=== PATIENT | female | born 1975 ===

== ENCOUNTER 2023-04-09 22:45 | Emergency (ER) | payer SELFPAY ==
[2023-04-10] MEDS ORDERED: ONDANSETRON 4 MG/2 ML VIAL ONE (00:48)
[2023-04-10] MEDS ORDERED: MORPHINE 4 MG/ML SYR ONE (00:48)
[2023-04-10] MEDS ORDERED: NA CHLORIDE 0.9% 500 ML ONE (00:48)
[2023-04-10 01:02] LABS: Specific Gravity 1.023 (1.005-1.030); Urine Bilirubin NEGATIVE (Negative); Urine Blood Negative (Negative); Urine Clarity Clear (Clear); Urine Color Light-Yellow (Yellow); Urine Glucose NEGATIVE (Negative); Urine Protein NEGATIVE (Negative); Urine Urobilinogen Normal (Normal)
[2023-04-10 01:07] LABS: Specific Gravity 1.023 (1.005-1.030)
[2023-04-10 01:17] LABS: Absolute Lymphocytes (CBC) 2.6 K/uL (0.7-4.9); Hematocrit 37.7 % (36.0-45.0); Lymphocytes % 34.5 % (15.3-44.8); MCV 83.4 fL (80-100); Platelets 291 thou/uL (152-406); RBC Red Blood Cell Count 4.52 M/uL (3.86-4.86)
[2023-04-10 01:19] LABS: Potassium 3.5 mEq/L (3.5-5.1); Troponin High Sensitivity 8.2 pg/mL (<58.9)
--- NOTE | 2023-04-10 02:20 | EDPHYS ---
Physician Documentation [facility] Name: Ernestine Dao Age: 48 yrs Sex: Female : 1975 Arrival Date: 04/09/2023 Time: 22:45 Bed 3 Private MD: ED Physician Deric Reece HPI: 04/09 23:45 This 48 yrs old Female presents to ER via Ambulatory with complaints of High Blood rn Pressure. 23:45 The patient has elevated blood pressure and discovered this at home. Onset: The rn symptoms/episode began/occurred at an unknown time. Modifying factors: The symptoms are alleviated by prescription meds. Severity of symptoms: At its worst the blood pressure was moderate, in the emergency department the blood pressure is improved. The patient has experienced similar episodes in the past. 23:46 The patient has not recently seen a physician. Patient reports high blood pressure for rn the last few days, doubled her lisinopril and atenolol yesterday and did not feel good after doing so. Blood pressure was high today so only took an extra lisinopril and feels better. Reports having headache, tingling to bilateral hands, no weakness. No chest pain or abdominal pain. No syncope. Reports this is happened before with complete workup and was her blood pressure. No changes in medications over the last 6 months.. 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 Flu vaccine is not up to date. - Social history:: Smoking status: Patient denies any tobacco usage or history of. Patient/guardian denies using alcohol, street drugs. - Family history:: not pertinent. - Hospitalizations: : No recent hospitalization is reported. ROS: 23:46 Constitutional: Negative for fever, chills, and weight loss, Eyes: Negative for injury, rn pain, redness, and discharge, Neck: Negative for injury, pain, and swelling, Cardiovascular: Negative for chest pain, palpitations, and edema, Respiratory: Negative for shortness of breath, cough, wheezing, and pleuritic chest pain, Abdomen/GI: Negative for abdominal pain, nausea, vomiting, diarrhea, and constipation, Back: Negative for injury and pain, MS/Extremity: Negative for injury and deformity, Skin: Negative for injury, rash, and discoloration, Neuro: Positive for headache and tingling of bilateral hands Exam: 23:46 Constitutional: This is a well developed, well nourished patient who is awake, alert, rn and in no acute distress. Head/Face: Normocephalic, atraumatic. Eyes: Pupils equal round and reactive to light, extra-ocular motions intact. Neck: Trachea midline, no masses palpated, and no cervical lymphadenopathy. Supple, full range of motion without nuchal rigidity, or vertebral point tenderness. No Meningismus. Cardiovascular: Regular rate and rhythm. No pulse deficits. Respiratory: No increased work of breathing, no retractions or nasal flaring. Abdomen/GI: Soft, non-tender Skin: Warm, dry MS/ Extremity: Pulses equal, no cyanosis. Neuro: Awake and alert, GCS 15, oriented to person, place, time, and situation. Cranial nerves II-XII grossly intact. Motor strength 5/5 in all extremities. Sensory grossly intact. Cerebellar exam normal. Normal gait. 04/10 00:49 ECG was reviewed by the Attending Physician. rn Vital Signs: 04/09 23:00 BP 162 / 98; Pulse 75; Resp 16; Temp 97.6(O); Pulse Ox 97% on R/A; Weight 85.73 kg (R); 8 Height 5 ft. 4 in. (R); Pain 10/10; 04/10 00:00 BP 151 / 86; Pulse 67; Resp 17 S; Pulse Ox 96% on R/A; ha1 01:00 BP 136 / 83; Pulse 66; Resp 17 S; Pulse Ox 96% on R/A; ha1 02:00 BP 148 / 83; Pulse 62; Resp 17 S; Pulse Ox 97% on R/A; ha1 04/09 23:00 Body Mass Index 32.44 (85.73 kg, 162.56 cm) [facility] 04/09 23:00 Pain Scale: Adult [facility] MDM: 04/09 22:55 Patient medically screened. rn 04/10 02:17 Differential diagnosis: hypertensive crisis, Malignant HTN, intracerebral hemorrhage. rn Data reviewed: vital signs, nurses notes, lab test result(s), EKG, radiologic studies, CT scan, plain films, and as a result, I will discharge patient. Consideration of Admission/Observation Escalation of care including admission/observation considered. Escalation considered for abnormal EKG. No previous EKGs to compare to, but possibly just changes nonspecific from longstanding uncontrolled hypertension. No ST elevation. Troponin negative. And patient denies chest pain or shortness of breath. After discussion, patient wants to go home. States feels much better, headache is resolved, blood pressure is improved after she took extra lisinopril at home prior to coming in. Will plan to bump her lisinopril up to 40 mg daily, continue atenolol, and follow-up with PCP with blood pressure diary.. Counseling: I had a detailed discussion with the patient and/or guardian regarding the historical points, exam findings, and any diagnostic results supporting the discharge/admit diagnosis, lab results, radiology results, the need for outpatient follow up, to return to the emergency department if symptoms worsen or persist or if there are any questions or concerns that arise at home. ED course: I have personally reviewed all of the results, including but not limited to blood tests and imaging deemed necessary to safely discharge this patient at this time. All results given to and printed out for patient. I personally went over all the results with the patient and answered all questions. Patient will follow-up with PCP and or specialist as discussed. Return precautions given and understood.. 12 00:54 Order name: Basic Metabolic Panel; Complete Time: 02:03 EDID 04/10 00:54 Order name: Troponin High Sensitivity; Complete Time: 02:03 EDID 04/10 00:54 Order name: NT PRO-BNP; Complete Time: 02:03 EDID 04/10 00:54 Order name: CBC with Automated Diff; Complete Time: 02: EDID 04/10 00:55 Order name: Test, Urine; Complete Time: 02:03 EDID 04/10 00:55 Order name: Urinalysis w/ reflexes; Complete Time: 02:03 EDID 04/10 00:27 Order name: Head Brain Wo Cont EDMS 04/10 00:44 Order name: Chest Single View EDID 04/09 23:08 Order name: EKG; Complete Time: 01:41 rn 04/09 23:08 Order name: Cardiac monitoring; Complete Time: 00:54 rn 04/09 23:08 Order name: EKG - Nurse/Tech; Complete Time: 00:51 rn 04/09 23:08 Order name: IV Saline Lock; Complete Time: 00:54 rn 04/09 23:08 Order name: Labs collected and sent; Complete Time: 00:54 rn 04/09 23:08 Order name: O2 Per Protocol; Complete Time: 00:54 rn 04/09 23:08 Order name: O2 Sat Monitoring; Complete Time: 00:54 rn EC:49 Rate is 67 beats/min. Rhythm is regular. QRS [place] is Normal. LA interval is normal. QRS rn interval is normal. QT interval is normal. No Q waves. T waves are Inverted in leads III, aVF, V3, V4, V5, V6. No ST changes noted. Clinical impression: NSR w/ Non-specific ST/T Changes. Interpreted by me. Reviewed by me. Administered Medications: 01:27 Drug: morphine IVP or IV 2 mg IVP once over 4 mins Route: IVP; Infused Over: 4 mins; ha1 Site: right antecubital; 02:00 Follow up: Response: No adverse reaction; Pain is decreased; RASS: Alert and Calm (0) ha1 01:27 Drug: Ondansetron IVP 4 mg IVP once; over 2 minutes Route: IVP; Site: right antecubital;ha1 02:00 Follow up: Response: No adverse reaction ha1 01:27 Drug: NS 0.9% IV 500 ml IV at bolus once Route: IV; Rate: bolus; Site: right ha1 antecubital; 02:46 Follow up: Response: No adverse reaction; IV Status: Completed infusion; IV Intake: ha1 500ml Disposition Summary: 04/10/23 02:20 Discharge Ordered Notes: Location: Home rn Problem: chronic rn Symptoms: have improved rn Condition: Stable rn Diagnosis - Essential (primary) hypertension rn Followup: rn - With: Private Physician - When: As needed - Reason: Recheck today's complaints, Re-evaluation by your physician Discharge Instructions: - Discharge Summary Sheet rn - Hypertension, Adult rn - Heart Disease edge burnisher uppers - Managing Your Hypertension rn Forms: - Medication Reconciliation Form rn - Thank You Letter rn - Antibiotic rn referral - Prescription Opioid Use rn - Patient Portal Instructions rn - Leadership Thank You Letter rn Signatures: Dispatcher [employer] EDMS Deric Reece MD MD rn Ayala, Heidy RN RN ha1 Marissa Whipple RN RN km8 Corrections: (The following items were deleted from the chart) 00:27 00:17 Head Brain Wo Cont ordered. EDMS EDMS 01:50 01:41 Chest Single View+RAD.RAD.BRZ ordered. EDMS EDMS 02:17 01:41 Head Brain Wo Cont+CT.RAD.BRZ ordered. EDMS EDMS
--- NOTE | 2023-04-10 02:20 | ER ---
Nurse's Notes [facility] Name: Ernestine Dao Age: 48 yrs Sex: Female : 1975 Arrival Date: 04/09/2023 Time: 22:45 Bed 3 Private MD: Diagnosis: Essential (primary) hypertension Presentation: 04/09 23:00 Chief complaint: Patient states: pt reports right sided KEE, fingers tingling, and km8 bilateral hand weakness, and high blood pressure for 4 days; readings at home 201/119. Coronavirus screen: Client denies travel out of the [place] in the last 14 days. Ebola Screen: No symptoms or risks identified at this time. Initial Sepsis Screen: Does the patient meet any 2 criteria? No. Patient's initial sepsis screen is negative. Does the patient have a suspected source of infection? No. Patient's initial sepsis screen is negative. Risk Assessment: Do you want to hurt yourself or someone else? Patient reports no desire to harm self or others. Onset of symptoms was April 05, 2023. 23:00 Method Of Arrival: Ambulatory km8 23:00 Acuity: JAY JAY 3 km8 Triage Assessment: 23:00 General: Appears in no apparent distress. uncomfortable, Behavior is calm, cooperative, km8 appropriate for age. Pain: Complains of pain in right side of headache Pain currently is 10 out of 10 on a pain scale. EENT: No signs and/or symptoms were reported regarding the EENT system. Neuro: Purdy Agitation-Sedation Scale (RASS): 0 - Alert and Calm Level of Consciousness is awake, alert, obeys commands, Oriented to person, place, time, situation, Reports headache paresthesias in right hand and left hand weakness in right hand and left hand. Cardiovascular: Capillary refill < 3 seconds Patient's skin is warm and dry. Respiratory: Airway is patent Respiratory effort is even, unlabored, Respiratory pattern is regular, symmetrical. GI: No signs and/or symptoms were reported involving the gastrointestinal system. : No signs and/or symptoms were reported regarding the genitourinary system. Derm: No signs and/or symptoms reported regarding the dermatologic system. Skin is intact, is healthy with good turgor, Skin is dry, Skin is normal, Skin temperature is warm. Musculoskeletal: No signs and/or symptoms reported regarding the musculoskeletal system. Circulation, motion, and sensation intact. Range of motion: intact in all extremities. 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 Flu vaccine is not up to date. - Social history:: Smoking status: Patient denies any tobacco usage or history of. Patient/guardian denies using alcohol, street drugs. - Family history:: not pertinent. - Hospitalizations: : No recent hospitalization is reported. Screenin/15 02:45 [facility] ED Fall Risk Assessment (Adult) History of falling in the last 3 months, ha1 including since admission No falls in past 3 months (0 pts) Confusion or Disorientation No (0 pts) Intoxicated or Sedated No (0 pts) Impaired Gait Yes (1 pt) Mobility Assist Device Used No (0 pt) Altered Elimination No (0 pt) Score/Fall Risk Level 0 - 2 = Low Risk Oriented to surroundings, Maintained a safe environment, Educated pt \T\ family on fall prevention, incl call for assistance when getting out of bed, Hourly rounding (assess needs \T\ fall precautionary measures) done. Abuse screen: Denies threats or abuse. Denies injuries from another. Nutritional screening: No deficits noted. Tuberculosis screening: No symptoms or risk factors identified. Assessment: 00:20 General: Appears comfortable, Behavior is calm, cooperative. Pain: Denies pain. Neuro: ha1 Level of Consciousness is awake, alert, obeys commands, Reports paresthesias in right arm. Cardiovascular: Denies chest pain, Capillary refill < 3 seconds Patient's skin is warm and dry. Respiratory: Airway is patent Respiratory effort is even, unlabored, Respiratory pattern is regular, symmetrical. GI: Abdomen is round non-distended. Derm: Skin is pink, warm \T\ dry. Musculoskeletal: Circulation, motion, and sensation intact. Range of motion: intact in all extremities. 01:20 Reassessment: Patient and/or family updated on plan of care and expected duration. Pain ha1 level reassessed. Patient is alert, oriented x 3, equal unlabored respirations, skin warm/dry/pink. 02:20 Reassessment: Patient and/or family updated on plan of care and expected duration. Pain ha1 level reassessed. Patient is alert, oriented x 3, equal unlabored respirations, skin warm/dry/pink. Vital Signs: 04/09 23:00 BP 162 / 98; Pulse 75; Resp 16; Temp 97.6(O); Pulse Ox 97% on R/A; Weight 85.73 kg (R); km8 Height 5 ft. 4 in. (R); Pain 10/10; 04/10 00:00 BP 151 / 86; Pulse 67; Resp 17 S; Pulse Ox 96% on R/A; ha1 01:00 BP 136 / 83; Pulse 66; Resp 17 S; Pulse Ox 96% on R/A; ha1 02:00 BP 148 / 83; Pulse 62; Resp 17 S; Pulse Ox 97% on R/A; ha1 04/09 23:00 Body Mass Index 32.44 (85.73 kg, 162.56 cm) [facility] 04/09 23:00 Pain Scale: Adult [facility] ED Course: 04/09 22:51 Patient arrived in ED. gm2 22:55 Deric Reece MD is Attending Physician. rn 23:06 Triage completed. km 04/10 00:00 Arm band placed on right wrist. ha1 00:00 Patient has correct armband on for positive identification. Placed in gown. Bed in low ha1 position. Call light in reach. Side rails up X 1. 00:30 Inserted saline lock: 22 gauge in right antecubital area, using aseptic technique. vc1 Blood collected. 01:09 Head Brain Wo Cont In Process Unspecified. EDMS 01:28 Chest Single View In Process Unspecified. EDMS 02:38 Jodee Corona, LAURA is Primary Nurse. ha1 02:47 No provider procedures requiring assistance completed. IV discontinued, intact, ha1 bleeding controlled, No redness/swelling at site. Pressure dressing applied. 02:48 Provided Education on: need to follow up with PCP. ha1 Administered Medications: 01:27 Drug: morphine IVP or IV 2 mg IVP once over 4 mins Route: IVP; Infused Over: 4 mins; ha1 Site: right antecubital; 02:00 Follow up: Response: No adverse reaction; Pain is decreased; RASS: Alert and Calm (0) 1 01:27 Drug: Ondansetron IVP 4 mg IVP once; over 2 minutes Route: IVP; Site: right antecubital;ha1 02:00 Follow up: Response: No adverse reaction ha1 01:27 Drug: NS 0.9% IV 500 ml IV at bolus once Route: IV; Rate: bolus; Site: right ha1 antecubital; 02:46 Follow up: Response: No adverse reaction; IV Status: Completed infusion; IV Intake: ha1 500ml Medication: 02:48 VIS not applicable for this client. ha1 Intake: 02:46 IV: 500ml; Total: 500ml. 1 Outcome: 02:20 Discharge ordered by . rn 02:47 Discharged to home ambulatory, 1 02:47 Condition: stable 02:47 Discharge instructions given to patient, family, Instructed on discharge instructions, follow up and referral plans. Demonstrated understanding of instructions, follow-up care, 02:49 Patient left the ED. 1 Signatures: Dispatcher [employer] EDMS Deric Reece MD MD rn Calcote, Vanessa RN RN 1 Jodee Corona RN RN ha1 Marielos Dhillon 2 Marissa Whipple RN RN km8
[2023-04-10 03:47] VITALS: TEMP 97.6; O2SAT 97
[2023-04-10 03:50] VITALS: BP 148/83
--- NOTE | 2023-04-10 18:20 | RAD REPORT ---
EXAM DESCRIPTION: XR CHEST 1 VIEW CLINICAL HISTORY: CHEST PAIN COMPARISON: None. TECHNIQUE: XR CHEST 1 VIEW 04/10/2023 12:00 AM DEVELOPER DESIGNER FINDINGS: Cardiac silhouette is normal in size. Lungs are clear without consolidation, atelectasis, mass or edema. There is no pleural effusion. There is no pneumothorax. There are no acute osseous fin dings. IMPRESSION: Clear lungs. Electronically signed by: Arley Vu MD 04/10/2023 01:35 AM DEVELOPER DESIGNER Due to temporary technical issues with the PACS/Fluency reporting system, reports are being signed by the in house radiologists without review as a courtesy to insure prompt reporting. The interpreting radiologist is fully responsible for the content of the report.
--- NOTE | 2023-04-10 18:22 | RAD REPORT ---
EXAM DESCRIPTION: CT head without IV contrast CLINICAL HISTORY: 48 years Female HTN TECHNIQUE: Multiple axial CT images of the brain were performed followed by sagittal and coronal rec onstructed images. The CT study is performed according to ALARA (as low as reasonably achievable) or ALARA/IMAGE GENTLY, with automatic adjustment of mA and/or kV according to patient size. Performed on: 04/10/2023 at 12:57 AM COMPARISON: No prior studies were available for comparison. FINDINGS: Brain: There is no evidence of mass, acute mass effect or midline shift. There are no acut e extra-axial fluid collections. There is no evidence of acute intracranial hemorrhage. The cerebra l sulci and ventricles are normal in size and configuration. There are no focal abnormal areas of inc reased or decreased attenuation. There are a couple of nonspecific punctate calcifications in the reg ion of the anterior third ventricle. Paranasal Sinuses and Mastoids: There is no significant mucosal thickening of the paranasal sinuses. The mastoid air cells are clear. Orbits: The orbital contents are grossly unremarkable. Bones: No acute osseous abnormalities are identified. Soft Tissues: No focal soft tissue abnormalities are identified. IMPRESSION: There is no evidence of acute intracranial pathology. Electronically signed by: Lizeth Martinez DO 04/10/2023 01:20 AM FIELD REPRESENTATIVE/HEALTH EDUCATION Due to temporary technical issues with the PACS/Fluency reporting system, reports are being signed by the in house radiologists without review as a courtesy to insure prompt reporting. The interpreting radiologist is fully responsible for the content of the report.
--- NOTE | 2023-04-13 12:35 | EKG ---
Test Date: 2023-04-10 Test Time: 00:41:30 Benzene Operator: SANTIAGO MEASUREMENT RESULTS: Intervals: Rate: 66 TX: 130 QRSD: 102 QT: 448 QTc: 469 [place]: P: 46 TX: 130 QRS: 68 T: -12 INTERPRETIVE STATEMENTS: Normal sinus rhythm Right atrial enlargement Anterior infarct, age undetermined T wave abnormality, consider inferolateral ischemia Abnormal ECG No previous ECG available for comparison Electronically Signed On 04-13-23 12:28:05 WIRE PULLER by Rubin Hamm
== END 2023-04-10 02:49 | disposition home or self-care (01) ==
LOC: ER 22:45
DX: I10 Essential (primary) hypertension (principal)
CPT/HCPCS: 36415; 70450; 71045; 80048; 81003; 81025; 83880; 84484; 85025; 93005; 96361; 96374; 96375; 99284; J2405; J7040

== ENCOUNTER → 2023-05-09 | Emergency (ER) | payer SELFPAY ==
[~2023-05-09] MED LIST: DIPHENHYDRAMINE 50 MG/ML VIAL ONE; KETOROLAC 30 MG/ML INJ ONE; METOCLOPRAMIDE 10 MG/2mL INJ ONE; NA CHLORIDE 0.9% 1,000 ML ONE
--- OUTSIDE RECORDS SUMMARY | 2023-05-09 14:11 | XMS REPORT | Continuity of Care Document ---
Author Name Unknown Address [address] [facility] [address] [place] [address] [facility] thconnect Address [address] [facility] [address] [place] [address] Care Team Providers Care Acute Coordinator Name Role Phone PCP, PATIENT DOES NOT HAVE A Primary Care Physic kennedy Unavailable EMIGDIO CERVANTES Attending Clinician Unavailable Emigdio Cervantes MD Attending Clinician [phone] EMIGDIO CERVANTES Admitting Clinician Unavailable Allergies, Adverse Reactions, Alerts Allergy Name Allergy Type Status Severity Reaction(s) Onset Date Inactive Date Treating Clinician Comments Source NO KNOWN ALLERGIE S Drug Class Active [facility] Social History Social Habit Start Date Stop Date Quantity Comments Source Sexual orientation U [facility] Sex Assigned At 1975 00:00[birth year]00 1975 00:00:00 [facility] Smoking Status Start Date Stop Date Source Tobacco smoking consumption unknown [facility] Vital Signs Vital Name Observation Time Observation Value Comments S ource Systolic blood pressure 2023-04-12 23:00:00 138 mm[Hg] [facility] Diastolic blood pressure 2023-04-12 23:00:00 92 mm[Hg] [facility] Heart rate 2023-04-12 23:00:00 68 /min [facility] Respiratory rate 2023-04-12 23:00:00 14 /min [facility] Oxygen saturation in Arterial blood by Pulse oximetry 2023-04-12 23:00:00 95 /min [facility] Body temperature 2023-04-12 21:32:00 36.94 Jamilah [facility] Body height 2023-04-12 21:32:00 162.6 cm [facility] Body weight 2023-04-12 21:32:00 87.091 kg [facility] BMI 2023-04-12 21:32:00 32.96 kg/m2 [facility] Procedures Procedure Date / Time Performed Performing Clinicia n Source EKG-12 LEAD 2023-04-12 23:33:43 Emigdio Cervantes [facility] XR CHEST 1 VW 2023-04-12 22:09:00 Emigdio Cervantes [facility] TROPONIN I 2023-04-12 21:48:00 [facility] BASIC METABOLIC PANEL (NA, K, CL, CO2, GLUCOSE, BUN, CREATININE, CA) 2023-04-12 21:48:00 Emigdio Cervantes [facility] CBC WITH DIFF 2023-04-12 21:48:00 Emigdio Cervantes [facility] N-TERMINAL PRO-BNP 2023-04-12 21:48:00 Emigdio Cervantes [facility] CONSENT/REFUSAL FOR DIAGNOSIS AND TREATMENT 2023-04-12 21:16:59 Doctor Unassigned, [place] [facility] NOTICE OF PRIVACY PRACTICES 2023-04-12 21:13:51 Doctor Unassigned, [place] [facility] Encounters Start Date/Time End Date/Time Encounter Type Admission Type Attending [facility] Care Facility Care Department Encounter ID Source 2023-04-12 15:36:00 2023-04-12 18:01:00 Emergency X EMIGDIO CERVANTES [facility] ERT [id number] [facility] 2023-04-12 15:36:00 2023-04-12 18:01:00 Emergency Emigdio Cervantes [facility] [id number] [facility]
--- NOTE | 2023-05-09 15:10 | RAD REPORT ---
EXAM DESCRIPTION: Yuridia Single View05/09/2023 2:49 pm CLINICAL HISTORY: Chest pain COMPARISON: March 2023 FINDINGS: The lungs appear clear of acute infiltrate. The heart is normal size IMPRESSION: No acute abnormalities displayed
[2023-05-09 16:05] LABS: Absolute Lymphocytes (CBC) 1.6 K/uL (0.7-4.9); Hematocrit 37.1 % (36.0-45.0); Lymphocytes % 25.6 % (15.3-44.8); MCV 82.8 fL (80-100); MPV 8.5 fL (7.6-11.3); Platelets 281 thou/uL (152-406); RBC Red Blood Cell Count 4.48 M/uL (3.86-4.86)
[2023-05-09 16:19] LABS: Potassium 3.9 mEq/L (3.5-5.1); Troponin High Sensitivity 7.4 pg/mL (<58.9)
--- NOTE | 2023-05-09 17:15 | ER ---
Nurse's Notes [facility] Name: Ernestine Dao Age: 48 yrs Sex: Female : 1975 Arrival Date: 05/09/2023 Time: 14:08 Bed 8 Private MD: Diagnosis: Acute upper respiratory infection, unspecified Presentation: 05/09 14:36 Chief complaint: Patient states: Headache, right ear and chest pain for 5 days. Cough nj1 during the night. Coronavirus screen: Vaccine status:. Ebola Screen: Patient denies travel to an Ebola-affected area in the 21 days before illness onset. Initial Sepsis Screen: Does the patient meet any 2 criteria? No. Patient's initial sepsis screen is negative. Does the patient have a suspected source of infection? No. Patient's initial sepsis screen is negative. Risk Assessment: Do you want to hurt yourself or someone else? Patient reports no desire to harm self or others. Onset of symptoms was May 04, 2023. 14:36 Method Of Arrival: Ambulatory [facility] 14:36 Acuity: JAY JAY 3 nj1 Historical: - Allergies: 14:38 No Known Allergies; nj1 - PMHx: 14:38 Hypertensive disorder; neuropathy; nj1 - PSHx: 14:38 Total abdominal hysterectomy; Socomy carisack (Total abdominal hysterectomy); nj1 - Immunization history:: Client reports having NOT received the Covid vaccine. - Social history:: Smoking status: Patient denies any tobacco usage or history of. Screenin:46 [facility] ED Fall Risk Assessment (Adult) History of falling in the last 3 months, ld1 including since admission No falls in past 3 months (0 pts). Abuse screen: Denies threats or abuse. Denies injuries from another. Nutritional screening: No deficits noted. Tuberculosis screening: No symptoms or risk factors identified. Assessment: 15:00 General: SEE TRIAGE NOTE. ld1 17:00 Reassessment: Patient appears in no apparent distress at this time. Patient is alert, ld1 oriented x 3, equal unlabored respirations, skin warm/dry/pink. Pain: Pain does not radiate. Pain began 4 hours ago. Cardiovascular: No deficits noted. Vital Signs: 14:36 BP 178 / 107; Pulse 74; Resp 17; Temp 97.7(TE); Pulse Ox 95% ; Weight 87.09 kg; Height nj1 5 ft. 4 in. ; Pain 10/10; 16:24 BP 176 / 101; Pulse 69; Resp 17; Pulse Ox 98% on R/A; ld1 17:46 BP 158 / 96; Pulse 78; Resp 16; Pulse Ox 96% ; ld1 14:36 Body Mass Index 32.96 (87.09 kg, 162.56 cm) nj1 14:36 Pain Scale: Adult [facility] ED Course: 14:09 Patient arrived in ED. ts1 14:21 Mera Marques FNP-C is PHCP. kb 14:21 Garo Ortiz MD is Attending Physician. kb 14:38 Triage completed. nj1 14:39 Arm band placed on right wrist. nj1 14:51 XRAY Chest (1 view) In Process Unspecified. EDMS 14:51 Gabriel Esparza, RN is Primary Nurse. bp 17:46 Patient has correct armband on for positive identification. Provided Education on: N/A. ld1 Client placed on continuous cardiac and pulse oximetry monitoring. NIBP monitoring applied. 17:46 No provider procedures requiring assistance completed. IV discontinued, intact. Patient ld1 maintains SpO2 saturation greater than 95% on room air. Administered Medications: 15:51 Drug: metoCLOPramide IVP 10 mg IVP once; over 1 to 2 minutes Route: IVP; Site: right bp antecubital; 17:47 Follow up: Response: No adverse reaction ld1 15:51 Drug: Ketorolac IVP 15 mg IVP once Route: IVP; Site: right antecubital; bp 17:47 Follow up: Response: No adverse reaction ld1 15:52 Drug: NS 0.9% IV 1000 ml IV at 1000 ml once Route: IV; Rate: 1000 ml; Site: right bp antecubital; 17:47 Follow up: IV Status: Completed infusion; IV Intake: 1000ml ld1 15:52 Drug: diphenhydrAMINE IM 12.5 mg IM once Route: IM; Site: right deltoid; bp 17:47 Follow up: Response: No adverse reaction ld1 Medication: 17:46 VIS not applicable for this client. ld1 Intake: 17:47 IV: 1000ml; Total: 1000ml. ld1 Outcome: 17:15 Discharge ordered by . kb 17:46 Discharged to home ambulatory, ld1 17:46 Condition: stable 17:46 Discharge instructions given to patient, Instructed on discharge instructions, follow up and referral plans. Demonstrated understanding of instructions, follow-up care, 17:47 Patient left the ED. ld1 Signatures: Dispatcher [employer] EDMera Salas, SALES EXECUTIVE-C SALES EXECUTIVE-Gabriel Vazquez RN RN Arlette Mccauley RN RN ld1 Beatriz May RN RN nj1 Isabel Carlin PAS PAS ts1
--- NOTE | 2023-05-09 17:15 | EDPHYS ---
Physician Documentation [facility] Name: Ernestine Dao Age: 48 yrs Sex: Female : 1975 Arrival Date: 05/09/2023 Time: 14:08 Bed 8 Private MD: ED Physician Garo Ortiz HPI: 05/09 18:46 This 48 yrs old Female presents to ER via Ambulatory with complaints of Chest Pressure, kb Ear Pain. 18:46 Pt is a 48 year old female who presents with cough, congestion, ear pain, sore throat, kb chest pain and cough that started 5 days ago. Denies fever or chills. Historical: - Allergies: 14:38 No Known Allergies; nj1 - PMHx: 14:38 Hypertensive disorder; neuropathy; nj1 - PSHx: 14:38 Total abdominal hysterectomy; Tummy tuck (Total abdominal hysterectomy); nj1 - Immunization history:: Client reports having NOT received the Covid vaccine. - Social history:: Smoking status: Patient denies any tobacco usage or history of. ROS: 18:46 Constitutional: Negative for fever, chills, and weight loss, kb 18:46 ENT: Positive for ear pain, sinus congestion, sore throat, 18:46 Cardiovascular: Positive for chest pain, 18:46 Respiratory: Positive for cough, 18:46 All other systems are negative, Exam: 18:46 Constitutional: This is a well developed, well nourished patient who is awake, alert, kb and in no acute distress. Head/Face: Normocephalic, atraumatic. ENT: Moist Mucous membranes Cardiovascular: Regular rate Respiratory: Respirations even and unlabored. No increased work of breathing. Talking in full sentences Skin: Warm, dry with normal turgor. Normal color. MS/ Extremity: Pulses equal, no cyanosis. Neurovascular intact. Full, normal range of motion. Neuro: Awake and alert, GCS 15, oriented to person, place, time, and situation. Moves all extremities. Normal gait. Vital Signs: 14:36 BP 178 / 107; Pulse 74; Resp 17; Temp 97.7(TE); Pulse Ox 95% ; Weight 87.09 kg; Height nj1 5 ft. 4 in. ; Pain 10/10; 16:24 BP 176 / 101; Pulse 69; Resp 17; Pulse Ox 98% on R/A; ld1 17:46 BP 158 / 96; Pulse 78; Resp 16; Pulse Ox 96% ; ld1 14:36 Body Mass Index 32.96 (87.09 kg, 162.56 cm) nj1 14:36 Pain Scale: Adult nj1 MDM: 14:21 Patient medically screened. kb 18:47 Differential Diagnosis: Bronchitis Influenza Upper Respiratory Infection Viral Syndrome kb Pneumonia Other covid, mi, arrhythmia. Data reviewed: vital signs, nurses notes. Counseling: I had a detailed discussion with the patient and/or guardian regarding the historical points, exam findings, and any diagnostic results supporting the discharge/admit diagnosis, lab results, radiology results, the need for outpatient follow up, a family practitioner, to return to the emergency department if symptoms worsen or persist or if there are any questions or concerns that arise at home. 05/09 14:39 Order name: Basic Metabolic Panel; Complete Time: 16:23 kb 05/09 14:39 Order name: CBC with Diff; Complete Time: 16:08 kb 05/09 14:39 Order name: Troponin HS; Complete Time: 16:23 kb 05/09 14:39 Order name: Flu; Complete Time: 16:59 kb 05/09 14:39 Order name: Strep; Complete Time: 16:59 kb 05/09 14:39 Order name: COVID-19 SARS RT PCR; Complete Time: 16:59 kb 05/09 16:49 Order name: Throat Culture EDNE 05/09 14:39 Order name: XRAY Chest (1 view); Complete Time: 15:13 kb 05/09 14:39 Order name: EKG; Complete Time: 14:40 kb 05/09 14:39 Order name: Cardiac monitoring; Complete Time: 15:52 kb 05/09 14:39 Order name: EKG - Nurse/Tech; Complete Time: 15:56 kb 05/09 14:39 Order name: IV Saline Lock; Complete Time: 15:52 kb 05/09 14:39 Order name: Labs collected and sent; Complete Time: 15:52 kb 05/09 14:39 Order name: O2 Per Protocol; Complete Time: 15:52 kb 05/09 14:39 Order name: O2 Sat Monitoring; Complete Time: 15:52 kb Administered Medications: 15:51 Drug: metoCLOPramide IVP 10 mg IVP once; over 1 to 2 minutes Route: IVP; Site: right bp antecubital; 17:47 Follow up: Response: No adverse reaction ld1 15:51 Drug: Ketorolac IVP 15 mg IVP once Route: IVP; Site: right antecubital; bp 17:47 Follow up: Response: No adverse reaction ld1 15:52 Drug: NS 0.9% IV 1000 ml IV at 1000 ml once Route: IV; Rate: 1000 ml; Site: right bp antecubital; 17:47 Follow up: IV Status: Completed infusion; IV Intake: 1000ml ld1 15:52 Drug: diphenhydrAMINE IM 12.5 mg IM once Route: IM; Site: right deltoid; bp 17:47 Follow up: Response: No adverse reaction ld1 Disposition Summary: 05/09/23 17:15 Discharge Ordered Notes: Location: Home kb Condition: Stable kb Diagnosis - Acute upper respiratory infection, unspecified kb Followup: kb - With: Emergency Department - When: As needed - Reason: Worsening of condition Followup: kb - With: Private Physician - When: 2 - 3 days - Reason: Recheck today's complaints, Continuance of care, Re-evaluation by your physician Discharge Instructions: - Discharge Summary Sheet kb - Upper Respiratory Infection, Adult, [id number] kb - Viral Respiratory Infection, [id number] kb Forms: - Medication Reconciliation Form kb - Thank You Letter kb - Antibiotic Education kb - Prescription Opioid Use kb - Patient Portal Instructions kb - Leadership Thank You Letter kb Signatures: Dispatcher [employer] Mera Telles FNP-C FNP-Gabriel Vazquez, RN RN bp Beatriz May, LAURA RN nj1 Arlette James RN ld1
[2023-05-09 19:12] VITALS: BP 158/96; TEMP 97.7; O2SAT 96
--- NOTE | 2023-05-11 17:03 | EKG ---
Test Date: 2023-05-09 Test Time: 15:52:46 Spring Coverer: AGUSTINA MEASUREMENT RESULTS: Intervals: Rate: 67 WV: 142 QRSD: 86 QT: 450 QTc: 475 [employer]: P: 49 WV: 142 QRS: 30 T: -19 INTERPRETIVE STATEMENTS: Normal sinus rhythm T wave abnormality, consider inferior ischemia Abnormal ECG Compared to ECG 04/10/2023 00:42:23 Atrial abnormality no longer present Prolonged QT interval no longer present T-wave abnormality still present Possible ischemia still present Electronically Signed On 05-11-23 16:58:08 UI DEVELOPER by Rubin Hamm
== END ==
LOC: ER 14:08
DX: J06.9 Acute upper respiratory infection, unspecified (principal); Z11.52 Encounter for screening for COVID-19
CPT/HCPCS: 36415; 71045; 80048; 84484; 85025; 87070; 87081; 87635; 87804; 93005; 96361; 96372; 96374; 96375; 99284; J1200; J2765; J7030